=== PATIENT | female | born 1985 | race Asian ===

== ENCOUNTER 2018-02-06 17:26 | Emergency (ER) | payer SELFPAY ==
[2018-02-06 19:38] LABS: URINE BLOOD (Dip) POC Negative (NEGATIVE); URINE GLUCOSE (Dip) POC Negative (NEGATIVE); URINE KETONES (Dip) POC Negative (NEGATIVE); URINE LEUKOCYTE EST (Dip) POC Trace (NEGATIVE); URINE NITRITE (Dip) POC Negative (NEGATIVE); URINE TOTAL PROTEIN POC Negative (NEGATIVE)
[2018-02-06] MEDS: morphine 4 MG/ML VIAL IV (19:39)
[2018-02-06] MEDS: ONDANSETRON 4 MG INJ IV (19:47)
[2018-02-06] MEDS: LORAZEPAM 2 MG INJ IV (21:02)
== END 2018-02-06 22:39 | disposition home or self-care (01) ==
LOC: FTE 17:26
DX: S40.212A Abrasion of left shoulder, initial encounter (principal); S19.9XXA Unspecified injury of neck, initial encounter; S09.90XA Unspecified injury of head, initial encounter; R51 Headache; W18.09XA Striking against other object with subsequent fall, initial encounter; Y92.9 Unspecified place or not applicable
CPT/HCPCS: 29105; 70450; 71250; 72125; 73030; 73060; 73090; 81003; 81025; 96374; 96375; 99285-25